=== PATIENT | male | born 1960 | race Two or more races ===

== ENCOUNTER 2022-12-08 11:08 | Inpatient (IN) | payer OTHER ==
[~2022-12-08] VITALS: Ht 177.8 cm; Wt 51.8 kg
[2022-12-08 11:40] LABS: Basophils # (auto) 0 10 ^3/uL (0-0.2); Eosinophils # (auto) 0 10 ^3/uL (0-0.8); Lymphocytes # (auto) 0.5 10 ^3/uL (0.4-5.4); Mean Corpuscular Hgb Conc. 32.9 g/dL (32.0-36.0)
[2022-12-08 11:43] LABS: Basophils % (auto) 0.4 % (0.0-2.0); Eosinophils % (auto) 0.2 % (0.0-7.0); Hematocrit 17.5 % (41.0-53.0); Lymphocytes % (auto) 8.9 % (10.0-50.0); Mean Corpuscular Hemoglobin 28.8 pg (28.0-32.0); Mean Corpuscular Volume 87.6 fL (80.0-100.0); Monocytes # (auto) 1.1 10 ^3/uL (0-1.3); Neutrophils % (auto) 70.3 % (37.0-80.0); Nucleated Red Blood Cells % 0.1 %; Red Cell Distribution Width 15.6 % (11.8-14.3); White Blood Cell 5.7 10^3/uL (4.4-10.8)
[2022-12-08 11:49] LABS: Monocytes % (auto) 20.2 % (0.0-12.0)
[2022-12-08 12:01] LABS: INR 1.27 (0.9-1.15); Partial Thromboplastin Time 38.7 SEC (24.5-34.5)
[2022-12-08 12:08] LABS: Albumin 1.2 g/dL (3.4-5.0); Calcium 11.3 mg/dL (8.5-10.1); Potassium 3.8 mmol/L (3.5-5.1)
[2022-12-08 12:15] LABS: Hemoglobin 5.8 g/dL (13.5-17.5)
[2022-12-08 12:22] LABS: Bilirubin, Total 0.2 mg/dL (0.2-1.0); Total Protein 9.5 g/dL (6.4-8.2)
[2022-12-08 17:15] LABS: Urine Bacteria NONE SEEN /hpf (None Seen); Urine Blood Negative /uL (Negative); Urine Mucus FEW (None Seen); Urine Specific Gravity 1.022 (1.001-1.035); Urine WBC 55 /hpf (0 - 3)
[2022-12-08] MEDS ORDERED: ACETAMINOPHEN 325 MG TAB PO PRN (18:15)
[2022-12-08] MEDS ORDERED: SODIUM CHLORIDE 0.9% 1,000 ML IV SCH (18:15)
[2022-12-08] MEDS ORDERED: ACYC200C22 PO (18:53)
[2022-12-08 22:00] VITALS: BP 98/50
[2022-12-08] MEDS: ACYCLOVIR 400 MG TAB PO SCH (22:17)
[2022-12-08 23:11] VITALS: BP_SYST 102; BP_SYST 98; BP_DIAS 49; BP_DIAS 50
[2022-12-08 23:28] VITALS: BP 98/50
[2022-12-08 23:53] VITALS: BP 96/51
[2022-12-09] VITALS (17 sets, daily range): BP systolic 94–109; BP diastolic 47–58
[2022-12-09] MEDS ORDERED: FOLI-119 PO (03:35)
[2022-12-09 07:37] LABS: Mean Corpuscular Hemoglobin 29.4 pg (28.0-32.0)
[2022-12-09 07:39] LABS: Hematocrit 19.9 % (41.0-53.0); Mean Corpuscular Hgb Conc. 34.1 g/dL (32.0-36.0); Mean Corpuscular Volume 86.2 fL (80.0-100.0); Red Blood Cells 2.31 10^6/uL (4.5-5.90); Red Cell Distribution Width 14.9 % (11.8-14.3); White Blood Cell 5.4 10^3/uL (4.4-10.8)
[2022-12-09 07:52] LABS: Hemoglobin 6.8 g/dL (13.5-17.5)
[2022-12-09 07:59] LABS: Albumin 1.1 g/dL (3.4-5.0); Calcium 10.6 mg/dL (8.5-10.1); Potassium 4.2 mmol/L (3.5-5.1)
[2022-12-09 08:03] LABS: BUN/Creatinine Ratio 21.9 (10.0-20.0); Bilirubin, Total 0.9 mg/dL (0.2-1.0); Total Protein 8.6 g/dL (6.4-8.2)
[2022-12-09 09:50] LABS: Basophils % (manual) 0 (0.0-2.0); Blast Cells 0; Eosinophils % (manual) 0 (0-7); Myelocytes % 0; Promyelocytes % 0; Reactive Lymphocytes 0
[2022-12-09 09:57] LABS: Band Neutrophils % (manual) 4; Lymphocytes % (manual) 9 (10.0-50.0); Metamyelocytes % 4; Monocytes % (manual) 14 (0-12)
[2022-12-09 10:09] LABS: Hematocrit 19.9 % (41.0-53.0)
[2022-12-09 10:16] LABS: Hemoglobin 6.8 g/dL (13.5-17.5)
[2022-12-09] MEDS: ACYCLOVIR 400 MG TAB PO SCH ×2 (10:58→21:40)
[2022-12-09] MEDS: PANTOPRAZOLE 40 MG/10 ML VIAL INJ IV SCH (10:58)
[2022-12-09] MEDS: FOLIC ACID 1 MG TAB PO SCH (10:58)
[2022-12-09] MEDS ORDERED: ALBUMIN 5% 250 ML IV ONE (15:15)
[2022-12-09] MEDS ORDERED: NYSTATIN (MOUTH-THROAT) 500,000 UNITS/5 ML SUSP MT ONE (15:45)
[2022-12-09] MEDS: NYSTATIN (MOUTH-THROAT) 500,000 UNITS/5 ML SUSP MT SCH ×2 (18:00→21:40)
[2022-12-09] MEDS: SODIUM CHLORIDE 0.9% 1,000 ML IV SCH (18:26)
[2022-12-09] MEDS: Ensure HIGH Protein Chocolate 8oz Bottle PO SCH (18:26)
[2022-12-09 22:11] LABS: Hematocrit 22.7 % (41.0-53.0); Hemoglobin 7.7 g/dL (13.5-17.5); Mean Corpuscular Hgb Conc. 33.8 g/dL (32.0-36.0)
[2022-12-09 22:13] LABS: Mean Corpuscular Hemoglobin 29.4 pg (28.0-32.0); Mean Corpuscular Volume 86.8 fL (80.0-100.0); Red Blood Cells 2.61 10^6/uL (4.5-5.90); Red Cell Distribution Width 14.7 % (11.8-14.3); White Blood Cell 4.7 10^3/uL (4.4-10.8)
[2022-12-09 22:52] LABS: Band Neutrophils % (manual) 0; Basophils % (manual) 0 (0.0-2.0); Blast Cells 0; Eosinophils % (manual) 0 (0-7); Metamyelocytes % 0; Myelocytes % 0; Promyelocytes % 0; Reactive Lymphocytes 0
[2022-12-09 23:08] LABS: Lymphocytes % (manual) 7 (10.0-50.0); Monocytes % (manual) 18 (0-12)
[2022-12-10] MEDS: SODIUM CHLORIDE 0.9% 1,000 ML IV SCH (04:52)
[2022-12-10 05:00] VITALS: BP 106/52
[2022-12-10 05:48] LABS: Mean Corpuscular Hgb Conc. 34.1 g/dL (32.0-36.0); Red Cell Distribution Width 14.8 % (11.8-14.3)
[2022-12-10 05:50] LABS: Hematocrit 23.2 % (41.0-53.0); Hemoglobin 7.9 g/dL (13.5-17.5); Mean Corpuscular Hemoglobin 29.7 pg (28.0-32.0); Mean Corpuscular Volume 87.2 fL (80.0-100.0); Red Blood Cells 2.66 10^6/uL (4.5-5.90); White Blood Cell 4.4 10^3/uL (4.4-10.8)
[2022-12-10 06:03] LABS: Calcium 10.4 mg/dL (8.5-10.1); Potassium 3.7 mmol/L (3.5-5.1)
[2022-12-10 06:06] LABS: Basophils % (manual) 0 (0.0-2.0); Blast Cells 0; Eosinophils % (manual) 0 (0-7); Promyelocytes % 0; Reactive Lymphocytes 0
[2022-12-10] MEDS: NYSTATIN (MOUTH-THROAT) 500,000 UNITS/5 ML SUSP MT SCH ×2 (06:09→12:00)
[2022-12-10] MEDS: Ensure HIGH Protein Chocolate 8oz Bottle PO SCH ×2 (08:00→12:00)
[2022-12-10 08:39] LABS: Band Neutrophils % (manual) 3; Lymphocytes % (manual) 3 (10.0-50.0); Metamyelocytes % 7; Monocytes % (manual) 15 (0-12); Myelocytes % 2
[2022-12-10] MEDS: FOLIC ACID 1 MG TAB PO SCH (08:54)
[2022-12-10] MEDS: PANTOPRAZOLE 40 MG/10 ML VIAL INJ IV SCH (08:54)
[2022-12-10 09:00] VITALS: BP 100/56
[2022-12-10] MEDS: ACYCLOVIR 400 MG TAB PO SCH (10:13)
[2022-12-10] MEDS ORDERED: SODIUM CHLORIDE 0.9% 1,000 ML IV ONE (10:15)
[2022-12-10 12:07] VITALS: BP 100/62
[2022-12-10 13:00] VITALS: BP 95/46
[2022-12-11 07:07] LABS: Immunoglobulin G, Serum 3335 mg/dL (603-1613)
== END 2022-12-10 13:55 | disposition home or self-care (01) | DRG 840 ==
LOC: ER 11:08 → OVERFLOW 18:12 → EAST 22:55
PROVIDERS: ADMIT Nurse Practitioner Family; ATTEND Student in an Organized Health Care Education/Training Program
PROC: 30233N1 Transfusion of Nonautologous Red Blood Cells into Peripheral Vein, Percutaneous Approach (ICD-10-PCS; principal; 2022-12-08)
PROC: 30233R1 Transfusion of Nonautologous Platelets into Peripheral Vein, Percutaneous Approach (ICD-10-PCS; 2022-12-09)
DX: C90.00 Multiple myeloma not having achieved remission (principal); E43 Unspecified severe protein-calorie malnutrition; E87.1 Hypo-osmolality and hyponatremia; B37.0 Candidal stomatitis; Z94.84 Stem cells transplant status; Z68.1 Body mass index [BMI] 19.9 or less, adult; D64.9 Anemia, unspecified; D69.6 Thrombocytopenia, unspecified; F17.210 Nicotine dependence, cigarettes, uncomplicated; K59.00 Constipation, unspecified; E83.52 Hypercalcemia; Z92.21 Personal history of antineoplastic chemotherapy; Z85.820 Personal history of malignant melanoma of skin
CPT/HCPCS: 36415; 80048; 80053; 81001; 82784; 83010; 83615; 83883; 84155; 84165; 85007; 85014; 85018; 85025; 85027; 85045; 85610; 85730; 86334; 86850; 86880; 86900; 86901; 86920; 93005; 93306; C9113; G0378